=== PATIENT | male | born 1995 | race Caucasian/White ===

== ENCOUNTER 2018-01-29 11:21 | Emergency (ER) | payer MEDICAID ==
[~2018-01-29] VITALS: Ht 175.3 cm; Wt 100.7 kg
[2018-01-29 11:26] VITALS: Ht 175.3 cm; Wt 100.7 kg
[2018-01-29 12:12] LABS: BASOPHIL % 0.4 % (0-2); PLATELET COUNT 260 x10^3mcL (130-400); RED CELL DISTRIBUTION WIDTH 13.1 % (11.5-14.5)
[2018-01-29 12:19] LABS: CALCIUM 9.7 mg/dL (8.5-10.1); CHLORIDE SERUM 103 mmol/L (98-107); CREATININE SERUM 1.1 mg/dL (0.7-1.3); GFR1 > 60 mL/min; GLUCOSE SERUM 123 mg/dL (74-106); POTASSIUM SERUM 3.6 mmol/L (3.5-5.1); SODIUM SERUM 141 mmol/L (136-145)
[2018-01-29 12:23] LABS: ALBUMIN 4.5 g/dL (3.4-5.0); ALKALINE PHOSPHATASE 87 U/L (46-116); ALT/SGPT 224 U/L (16-63); AST/SGOT 176 U/L (15-37); BILIRUBIN TOTAL 2.17 mg/dL (0.20-1.00); LIPASE 1394 IU/L (73-393)
[2018-01-29 12:48] LABS: TOTAL PROTEIN, SERUM 8.6 g/dL (6.4-8.2)
[2018-01-29 14:43] VITALS: BP 136/85
== END 2018-01-29 14:43 | disposition home or self-care (01) ==
LOC: ED 11:21
PROVIDERS: Emergency Medicine
DX: K85.90 Acute pancreatitis without necrosis or infection, unspecified (principal); J45.909 Unspecified asthma, uncomplicated
CPT/HCPCS: 36415; J2270; Q9967

== ENCOUNTER 2019-01-04 21:13 | Emergency (ER) | payer MEDICAID ==
[~2019-01-04] VITALS: Ht 175.3 cm; Wt 95.3 kg
[2019-01-04 21:24] VITALS: Ht 175.3 cm; Wt 95.3 kg
[2019-01-04 22:14] LABS: BASOPHIL % 0.7 % (0-2); PLATELET COUNT 216 x10^3mcL (130-400); RED CELL DISTRIBUTION WIDTH 13.4 % (11.5-14.5)
[2019-01-04 22:31] LABS: CALCIUM 10.1 mg/dL (8.5-10.1); CARBON DIOXIDE 26.9 mmol/L (21-32); CHLORIDE SERUM 103 mmol/L (98-107); CREATININE SERUM 1.2 mg/dL (0.7-1.3); GFR1 > 60 mL/min; GLUCOSE SERUM 144 mg/dL (74-106); POTASSIUM SERUM 3.8 mmol/L (3.5-5.1); SODIUM SERUM 141 mmol/L (136-145)
[2019-01-04 22:36] LABS: ALBUMIN 4.3 g/dL (3.4-5.0); ALKALINE PHOSPHATASE 95 U/L (46-116); ALT/SGPT 502 U/L (16-63); AST/SGOT 613 U/L (15-37); BILIRUBIN TOTAL 1.71 mg/dL (0.20-1.00); HDL CHOLESTEROL 48 mg/dL (40-60); LIPASE 130 IU/L (73-393); TOTAL PROTEIN, SERUM 8.2 g/dL (6.4-8.2)
[2019-01-04 22:37] LABS: CHOLESTEROL 204 mg/dL (<200)
[2019-01-05 01:07] VITALS: BP 126/67
[2019-01-05 01:19] LABS: microscopic required? YES; urine erythrocyte NEGATIVE (NEGATIVE)
[2019-01-05 01:48] LABS: AMPHETAMINE QUAL UR NONE DETECTED (See below)
== END 2019-01-05 01:07 | disposition home or self-care (01) ==
LOC: ED 21:13
PROVIDERS: Emergency Medicine
DX: R10.811 Right upper quadrant abdominal tenderness (principal); R74.0 Nonspecific elevation of levels of transaminase and lactic acid dehydrogenase [LDH]; J45.909 Unspecified asthma, uncomplicated; Z90.49 Acquired absence of other specified parts of digestive tract; Z87.19 Personal history of other diseases of the digestive system
CPT/HCPCS: J1885; J7030; Q0092